=== PATIENT | male | born 2000 | race Caucasian/White ===

== ENCOUNTER 2021-02-24 01:25 | Emergency (ER) | payer OTHER, SELFPAY ==
[2021-02-24] VITALS (8 sets, daily range): BP systolic 106–127; BP diastolic 68–77; PULSE 59–90; RESP 16–18; TEMP 35.8; O2SAT 94–99; BMI 21.7
--- NOTE | 2021-02-24 01:43 | EDS_ITS ---
HPI History of Present Illness Chief Complaint: ETOH Intox Narrative Narrative: Patient is a 20-year-old male brought in by EMS secondary to alcohol intoxication. Reportedly the patient is from [employer] and was at the college in [place] this evening. Reportedly he had been drinking and walked into one of the main dormitory diabetes and vomited. With this activity and his depressed mental status EMS was called to bring him in for evaluation. Upon arrival patient is obtunded but will awaken to stimulation and does admit to drinking vodka. He denies any other substance use [facility] Medical History unable to obtain unable to obtain Allergy/AdvReac Type Severity Reaction Status Date / Time No Known Allergies Allergy Verified 02/24/21 01:33 Social History Smoking Status: Current every day smoker tobacco type: cigarettes ROS ROS ED ROS Narrative Please note review of systems may be unreliable secondary to patient's alcohol intoxication Constitutional Constitutional ED: Denies chills or fever(s) ENT ENT ED: Denies sore throat Cardiovascular Cardiovascular: Denies chest pain Respiratory/Chest Respiratory/Chest: Denies cough Gastrointestinal Gastrointestinal: Reports nausea and vomiting Musculoskeletal Musculoskeletal: Denies myalgias Psychiatric Psychiatric: Denies suicidal ideation or suicidal thoughts EXAM Physical Exam Const Vital Signs: 02/24/21 01:27 02/24/21 01:29 02/24/21 02:29 Temperature 96.5 F L 96.5 F L Temperature Source Oral Temporal Pulse Rate 79 72 90 Respiratory Rate 18 18 16 Blood Pressure 116/75 116/75 106/73 Blood Pressure Mean 88 88 84 Pulse Ox 94 95 99 Oxygen Delivery Method Room Air Room Air Room Air 02/24/21 03:09 Temperature Temperature Source Pulse Rate 88 Respiratory Rate 18 Blood Pressure 106/75 Blood Pressure Mean 85 Pulse Ox 99 Oxygen Delivery Method Room Air Positive well nourished and well developed General Appearance ED: well developed HEENT HEENT Narrative: No tongue or cheek biting noted no oral lesions no airway edema or compromise Eyes Eyes Narrative: Pupils are dilated and sluggish to respond with nystagmus consistent with alcohol use/abuse Neck supple Chest Wall palpation of chest normal Resp normal respiratory effort and clear to auscultation bilaterally Cardio regular rate and regular rhythm GI normal to inspection, nondistended, normoactive bowel sounds, non-tender and non-distended Auscultation: normoactive bowel sounds Palpation: soft Extremity normal to inspection Neuro Neuro Narrative: Patient is obtunded but will awaken to loud voice and there is no focal neurologic deficit and he is still protecting his airway Psych Psych Narrative: Patient has a depressed/flat affect Skin no rashes or lesions noted and no wounds MDM MDM MDM Narrative Medical decision making narrative: Patient arrived to the ER obtunded with dilated pupils and nystagmus consistent with acute alcohol intoxication. A lcohol level was checked and is elevated to 75 consistent with his physical exam and history. Therefore this time patient will be watched in the hospital until his alcohol level nears 100 where he will be medically sober and able to be discharged. As he has no signs of trauma on exam and his alcohol level does fit his change in mental status I do not feel there is need for further work-up. Lab Data Attestation: I reviewed the patient's lab results. Labs: Laboratory Results - last 24 hr 02/24/21 01:43 Ethyl Alcohol 275.0 Discharge Plan Triage Chief Complaint: ETOH Intox ED Provider: Brandon Garcia Dx/Rx/DC Orders Clinical Impression: Alcohol intoxication Instructions: ED Alcohol Intoxication Primary Care Provider: Care Physician,No Primary Referrals: Janie Plascencia MD [STAFF PHYSICIAN] - As Needed Care Physician,No Primary [Primary Care Provider] - Disposition Disposition: Home, Self Care
== END 2021-02-24 07:50 | disposition home or self-care (01) ==
PROVIDERS: Emergency Provider Emergency Medicine
DX: F10.129 Alcohol abuse with intoxication, unspecified (principal); Y90.9 Presence of alcohol in blood, level not specified; F17.210 Nicotine dependence, cigarettes, uncomplicated
CPT/HCPCS: 82077; 99284; A4216